=== PATIENT | female | born 1990 | race Two or more races ===

== ENCOUNTER 2020-08-03 11:20 | Emergency (ER) | payer OTHER ==
[~2020-08-03] VITALS: Ht 175.3 cm; Wt 117.0 kg
[2020-08-03] MEDS ORDERED: COZAAR50 MG PO (13:00)
[2020-08-03] MEDS ORDERED: CLONAZEPAM1 MG PO (13:00)
[2020-08-03] MEDS ORDERED: ZOLOFT100 MG PO (13:01)
[2020-08-03] MEDS ORDERED: SINGULAIR10 MG PO (13:01)
[2020-08-03] MEDS ORDERED: GLUMETZA500 MG PO (13:01)
== END 2020-08-03 17:10 | disposition home or self-care (01) ==
LOC: ER 11:20
DX: S81.822A Laceration with foreign body, left lower leg, initial encounter (principal); W45.8XXA Other foreign body or object entering through skin, initial encounter; Y93.89 Activity, other specified; Y92.89 Other specified places as the place of occurrence of the external cause; Y99.8 Other external cause status

== ENCOUNTER 2020-08-30 06:19 | Emergency (ER) | payer OTHER ==
[~2020-08-30] VITALS: Ht 175.3 cm; Wt 116.1 kg
[~2020-08-30 06:19] MED LIST: CLONAZEPAM1 MG PO; COZAAR50 MG PO; GLUMETZA500 MG PO; SINGULAIR10 MG PO; ZOLOFT100 MG PO
[2020-08-30] MEDS ORDERED: ZITHROMAX TRI-500 MG PO (10:11)
== END 2020-08-30 10:41 | disposition home or self-care (01) ==
LOC: ER 06:19
DX: J06.9 Acute upper respiratory infection, unspecified (principal); Z11.52 Encounter for screening for COVID-19

== ENCOUNTER 2021-01-20 16:54 | Emergency (ER) | payer OTHER ==
[~2021-01-20] VITALS: Ht 175.3 cm; Wt 124.7 kg
[~2021-01-20 16:54] MED LIST changes: +ZITHROMAX TRI-500 MG PO
[2021-01-20] MEDS ORDERED: HYDRODIURIL12.5 MG (17:04)
[2021-01-20] MEDS ORDERED: RESTORIL15 MG (17:05)
[2021-01-20] MEDS ORDERED: PEPCID AC20 MG PO (19:48)
[2021-01-20] MEDS ORDERED: BACTRIM DS TAB1 EACH PO (19:48)
== END 2021-01-20 20:26 | disposition home or self-care (01) ==
LOC: ER 16:54
DX: N39.0 Urinary tract infection, site not specified (principal); E11.9 Type 2 diabetes mellitus without complications